=== PATIENT | male | born 1990 | race Caucasian/White ===

== ENCOUNTER 2019-11-12 15:27 | Emergency (ER) | payer SELFPAY ==
[2019-11-12] MEDS ORDERED: DIPHTH,PERTUSS(ACELL),TET 0.5 ML DISP.SYRIN IM ONE ×2 (15:32→16:52)
[2019-11-12] MEDS ORDERED: MORPHINE SULFATE 2 MG/ML VIAL IVPUSH ONE (15:32)
--- NOTE | 2019-11-12 15:32 | PDOC ---
Rapid Medical Evaluation Time Seen by Provider: 11/12/19 15:30 Medical Evaluation: 11/12/19 15:30 Pt c/o:lac to left 1st digit from a saw. unknown last tdap Pt on brief exam:noted vertical deep/ complex lac to lat of lt 1st digit, + rom with flexion/extension Pt ordered for: xray. iv, morphine, tdap Pt to proceed to the ED Discharge Disposition - Diagnosis Laceration of thumb - Referrals - Patient Instructions - Post Discharge Activity
[2019-11-12 15:33] VITALS: BP 123/88; PULSE 88; TEMP 97.8; BMI 24.3
[2019-11-12] MEDS ORDERED: MORPHINE SULFATE 2 MG/ML VIAL ONE (16:50)
--- NOTE | 2019-11-12 17:00 | PDOC ---
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 Patient reports cutting his left first digit while using a "saw machine." Patient is unsure last tdap. No recent travel or sick contacts. PAST MEDICAL HISTORY: Denies past medical history FAMILY HISTORY: Denies SOCIAL HISTORY:Denies tobacco, alcohol, illicit drug use. SURGICAL HISTORY: Denies ALLERGIES: No known drug allergies REVIEW OF SYSTEMS General/Constitutional: Denies fever or chills. Denies weakness, weight change. HEENT: Denies change in vision. Denies ear pain or discharge. Denies sore throat. Cardiovascular: Denies chest pain or shortness of breath. Respiratory: Denies cough, wheezing, or hemoptysis. Gastrointestinal: Denies nausea, vomiting, diarrhea or constipation. Denies rectal bleeding. Genitourinary: Denies dysuria, frequency, or change in urination. Musculoskeletal: Denies joint or muscle swelling or pain. Denies neck or back pain. Skin: laceration to Left thumb Neurologic: Denies headache, vertigo, loss of consciousness, or loss of sensation. Psychiatric: Denies depression or anxiety. PHYSICAL EXAM General Appearance: Well-appearing, appropriately dressed. No apparent distress , no intoxication. HEENT: EOMI, PERRLA, normal ENT inspection, normal voice, TMs normal, pharynx normal. No conjunctival pallor. No photophobia, scleral icterus. Neck: Supple. Trachea midline. No tenderness, rigidity, carotid bruit, stridor , lymphadenopathy, or thyromegaly. Respiratory/Chest: Lungs CTAB. No shortness of breath, chest tenderness, respiratory distress, accessory muscle use. No crackles, rales, rhonchi, stridor , wheezing, dullness Cardiovascular: RRR. S1, S2. No JVD, murmur, bradycardia, tachycardia. Vascular Pulses: Dorsalis-Pedis (R): 2+, Dorsalis-Pedis (L): 2+ Gastrointestinal/Abdominal: Normal bowel sounds. Abdomen soft, non-distended. No tenderness or rebound tenderness. No organomegaly, pulsatile mass, guarding , hernia, hepatomegaly, splenomegaly. Lymphatic: No adenopathy, tenderness. Musculoskeletal/Extremities: Normal inspection. FROM of all extremities, normal capillary refill. Pelvis Stable. No CVA tenderness. No tenderness to extremities, pedal edema, swelling, erythema or deformity. Integumentary: Laceration to dorsal aspect of L thumb approximatley 1.5 inch in length, flexion/extension to L thumb intact. No nailbed involvement. Appropriate color, dry, warm. No cyanosis, erythema, jaundice or rash Neurologic: latrine cleaner II-XII intact. Fully oriented, alert. Appropriate mood/affect. Motor strength 5/5. No appreciable EOM palsy, facial droop or sensory deficit. Past History - Past Medical History Allergies/Adverse Reactions: Allergies Allergy/AdvReac Type Severity Reaction Status Date / Time No Known Allergies Allergy Verified 11/12/19 15:33 Home Medications: Ambulatory Orders Clindamycin [Cleocin -] 300 mg PO Q6HPO #28 capsule 11/12/19 COPD: No - Immunization History Immunization Up to Date: No - Psycho Social/Smoking Cessation Hx Smoking History: Never smoked *Physical Exam - Vital Signs Last Vital Signs Temp Pulse Resp BP Pulse Ox 97.8 F 88 24 H 123/88 99 11/12/19 15:32 11/12/19 15:32 11/12/19 15:32 11/12/19 15:32 11/12/19 15:32 Procedures - Consent Consent obtained: Verbal - Laceration/Wound Repair Left Dorsal Finger 1st digit Wound Length: 2.6 to 5.0 cm Wound Explored: contaminated Wound's Depth, Shape: linear Irrigated w/ Saline: Yes Betadine Prep: No Anesthesia: 1% Lidocaine Amount of Anesthetic (ccs): 5 Wound Repaired With: Sutures Suture Size/Type: 5:0 Number of Sutures: 9 Layer Closure: No Sterile Dressing Applied: Yes (bacitracin, bandaid, kerlex) Medical Decision Making - Medical Decision Making 11/12/19 18:01 29 yo M with no PMH 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 -tdap given mechanism of injury and dirty wound, will cover with abx. -clindamycin rx lac repair performed (see procedure note). Advised patient to take medication as prescribed and of post lac repair instructions. Advised patient of signs and symptoms for return to ED. Patient verbalized understanding and agrees to plan. Discharge - Discharge Information Problems reviewed: Yes Clinical Impression/Diagnosis: Laceration of thumb Qualifiers: Encounter type: initial encounter Damage to nail status: without damage Foreign body presence: without foreign body Laterality: left Qualified Code(s): S61.012A - Laceration without foreign body of left thumb without damage to nail , initial encounter Condition: Stable Disposition: HOME - Admission No - Additional Discharge Information Prescriptions: Clindamycin [Cleocin -] 300 mg PO Q6HPO #28 capsule - Follow up/Referral Referrals: Sacha Paul MD [Staff Physician] - - Patient Discharge Instructions Patient Printed Discharge Instructions: DI for Laceration Repair Additional Instructions: As discussed, please keep area of laceration clean and dry for the next 24-48 hours. Afterwards you may wash with mild soap and water. Return to fast track or your primary care doctor for suture removal in 10-14 days. If you experience any redness, swelling, streaking, warmth, to the site of the cut, or develop fever, nausea, vomiting, or diarrhea, please return to the ER. - Post Discharge Activity Work/Back to School Note: Back to Work
[2019-11-12] MEDS ORDERED: CLINDAMYCIN HCL 150 MG CAPSULE (FP) PO ONE (17:39)
[2019-11-12] MEDS ORDERED: CLINDAMYCIN HCL 150 MG CAPSULE (FP) ONE (17:42)
== END 2019-11-12 18:09 | disposition home or self-care (01) ==
LOC: JER 15:27
PROC: 3E0234Z Introduction of Serum, Toxoid and Vaccine into Muscle, Percutaneous Approach (ICD-10-PCS; principal; 2019-11-12)
PROC: 0JQK3ZZ Repair Left Hand Subcutaneous Tissue and Fascia, Percutaneous Approach (ICD-10-PCS; 2019-11-12)
DX: S61.012A Laceration without foreign body of left thumb without damage to nail, initial encounter (principal); W29.8XXA Contact with other powered hand tools and household machinery, initial encounter; Y93.H3 Activity, building and construction; Y92.61 Building [any] under construction as the place of occurrence of the external cause; Y99.0 Civilian activity done for income or pay
CPT/HCPCS: 73140-TC-LT-FY; 90715; 99282-25

== ENCOUNTER 2021-04-24 13:37 | Emergency (ER) | payer SELFPAY ==
[2021-04-24 13:50] VITALS: BP 118/68; PULSE 72; TEMP 98.7; BMI 24.7
== END 2021-04-24 14:47 | disposition home or self-care (01) ==
LOC: JERFT 13:37
DX: S05.02XA Injury of conjunctiva and corneal abrasion without foreign body, left eye, initial encounter (principal)
CPT/HCPCS: 99282-25